=== PATIENT | male | born 1955 | race Two or more races ===

== ENCOUNTER 2017-10-14 10:50 | Outpatient (CLI) | payer OTHER ==
[~2017-10-14 10:50] MED LIST: ALAVERT10 MG PO; ALLEGRA; BENADRYL50 MG PO; HYZAAR 100-251 UDTAB PO; TAGAMET400 MG PO; TOPROL XL100 MG PO; [UNRECOGNIZED DRUG - OTHER] PO
== END 2017-10-14 14:54 | disposition home or self-care (01) ==
LOC: RAD 10:50
DX: Z00.01 Encounter for general adult medical examination with abnormal findings (principal)

== ENCOUNTER 2017-10-31 10:05 | Outpatient (CLI) | payer OTHER | END 2017-10-31 10:18 | disposition home or self-care (01) | LOC: TOM 10:05 | DX: R04.0 Epistaxis (principal); I10 Essential (primary) hypertension; H66.93 Otitis media, unspecified, bilateral ==

== ENCOUNTER → 2018-10-11 | Outpatient (CLI) | payer OTHER | END | disposition home or self-care (01) | LOC: RAD 10:05 | DX: Z00.00 Encounter for general adult medical examination without abnormal findings (principal) ==

== ENCOUNTER → 2019-03-23 | Outpatient (CLI) | payer OTHER | END | disposition home or self-care (01) | LOC: NUCLEAR 10:00 | DX: I73.9 Peripheral vascular disease, unspecified (principal); I87.2 Venous insufficiency (chronic) (peripheral); I10 Essential (primary) hypertension ==

== ENCOUNTER → 2020-01-07 | Outpatient (CLI) | payer OTHER | END | disposition home or self-care (01) | LOC: RAD 08:12 | PROVIDERS: ATTEND Specialist | DX: Z13.9 Encounter for screening, unspecified (principal) ==

== ENCOUNTER 2020-11-11 10:29 | Outpatient (CLI) | payer OTHER | END 2020-11-11 10:36 | disposition home or self-care (01) | LOC: LAB 10:29 | PROVIDERS: ATTEND Specialist | DX: I10 Essential (primary) hypertension (principal) ==

== ENCOUNTER → 2020-11-11 | Outpatient (CLI) | payer OTHER | END | disposition home or self-care (01) | LOC: TOM 11:45 | PROVIDERS: ATTEND Specialist | DX: R20.2 Paresthesia of skin (principal); I10 Essential (primary) hypertension; A08.8 Other specified intestinal infections ==

== ENCOUNTER 2021-01-27 08:08 | Outpatient (CLI) | payer OTHER | END 2021-01-27 08:18 | disposition home or self-care (01) | LOC: TOM 08:08 | PROVIDERS: ATTEND General Practice | DX: J98.4 Other disorders of lung (principal); R91.1 Solitary pulmonary nodule ==

== ENCOUNTER → 2021-10-14 06:30 | Outpatient (CLI) | payer OTHER | END | disposition home or self-care (01) | LOC: LAB 06:30 | PROVIDERS: ATTEND Specialist | DX: Z12.5 Encounter for screening for malignant neoplasm of prostate (principal); Z12.11 Encounter for screening for malignant neoplasm of colon; I10 Essential (primary) hypertension; Z13.1 Encounter for screening for diabetes mellitus ==

== ENCOUNTER 2021-10-14 08:15 | Outpatient (CLI) | payer OTHER | END 2021-10-14 08:30 | disposition home or self-care (01) | LOC: MRI 08:15 | PROVIDERS: ATTEND Specialist | DX: M25.50 Pain in unspecified joint (principal); Z12.5 Encounter for screening for malignant neoplasm of prostate; Z12.11 Encounter for screening for malignant neoplasm of colon; Z13.1 Encounter for screening for diabetes mellitus | CPT/HCPCS: 73721 ==

== ENCOUNTER 2022-02-11 14:56 | Outpatient (CLI) | payer OTHER | END 2022-02-11 15:25 | disposition home or self-care (01) | LOC: RAD 14:56 | PROVIDERS: ATTEND Specialist | DX: Z02.79 Encounter for issue of other medical certificate (principal) ==

== ENCOUNTER 2022-09-21 10:50 | Outpatient (CLI) | payer OTHER | END 2022-09-21 11:09 | disposition home or self-care (01) | LOC: RAD 10:50 | PROVIDERS: ATTEND General Practice | DX: M54.50 Low back pain, unspecified (principal); M62.830 Muscle spasm of back ==

== ENCOUNTER → 2023-01-12 | Outpatient (CLI) | payer OTHER | END | disposition home or self-care (01) | LOC: RAD 10:36 | PROVIDERS: ATTEND Specialist | DX: Z02.79 Encounter for issue of other medical certificate (principal) ==

== ENCOUNTER 2023-05-12 11:32 | Outpatient (CLI) | payer OTHER | END 2023-05-12 15:17 | disposition home or self-care (01) | LOC: SONOGRAMA 11:32 | PROVIDERS: ATTEND Specialist | DX: R22.31 Localized swelling, mass and lump, right upper limb (principal); E78.5 Hyperlipidemia, unspecified ==

== ENCOUNTER 2024-02-27 13:40 | Outpatient (CLI) | payer OTHER | END 2024-02-27 13:51 | disposition home or self-care (01) | LOC: RAD 13:40 | PROVIDERS: ATTEND Specialist | DX: Z02.79 Encounter for issue of other medical certificate (principal) ==

== ENCOUNTER 2025-02-01 10:47 | Outpatient (CLI) | payer OTHER | END 2025-02-01 10:52 | disposition home or self-care (01) | LOC: RAD 10:47 | PROVIDERS: ATTEND Specialist | DX: Z02.79 Encounter for issue of other medical certificate (principal) ==

== ENCOUNTER 2025-02-13 08:27 | Outpatient (CLI) | payer OTHER | END 2025-02-13 08:34 | disposition home or self-care (01) | LOC: SONOGRAMA 08:27 | DX: M25.531 Pain in right wrist (principal) ==